=== PATIENT | female | born 2000 | race Two or more races ===

== ENCOUNTER 2023-05-29 16:18 | Emergency (ER) | payer MEDICAID, SELFPAY ==
[2023-05-29 16:23] VITALS: BP 108/64; PULSE 99; RESP 18; TEMP 36.8; O2SAT 98; BMI 24.2
--- NOTE | 2023-05-29 16:30 | ECG_ITS ---
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
--- NOTE | 2023-05-29 16:36 | ED.GENADUL1 ---
HPI - General Adult General Chief complaint: Chest Pain Stated complaint: RIB PAIN, POSS Time Seen by Provider: 05/29/23 16:20 Source: patient Mode of arrival: walk-in History of Present Illness HPI narrative: Patient is a 22-year-old female who presents to the emergency department for pain in the left inferior ribs laterally that has been present for the last day. She has no complaint of elia chest pain, shortness of breath, fevers, chills, cough, congestion. She states she came to the emergency department because she had similar pain when she was with her first child. She states she took 2 positive home tests at home. She was evaluated for the pain in the left rib cage with her previous and it was found to be benign. She states she came to the ER because the test were positive at home and she wants to find out why the ribs are hurting. She denies any injuries or traumas. She does not complain of abdominal pain until directly asked and then states that she developed pelvic pain today with no vaginal bleeding or fluid leakage. No urinary symptoms. No medications taken prior to arrival. Related Data Allergies Allergy/AdvReac Type Severity Reaction Status Date / Time No Known Drug Allergies Allergy Verified 05/29/23 16:27 Review of Systems ROS Constitutional Denies: fever or chills Ears, nose, mouth, and throat Denies: throat pain or nasal congestion Cardiovascular Reports: chest pain Respiratory Denies: shortness of breath, cough, wheezing, pain on inspiration, change in phlegm color or coughing up blood Gastrointestinal Reports: abdominal pain; Denies: nausea, vomiting or diarrhea Genitourinary Reports: pelvic pain; Denies: painful urination or urinary frequency Musculoskeletal Denies: back pain, neck pain, extremity pain or extremity swelling Integumentary/Breast Denies: rash Neurological Denies: headache Exam Narrative Exam Narrative: Gen.: Awake, alert, in no distress Head: Normocephalic, atraumatic ENT: Moist mucous membranes Respiratory: No respiratory distress, lungs clear bilaterally; Chest wall is nontender, no rashes or ecchymosis. No bony tenderness of the T-spine or L-spine Cardio: Regular rate and rhythm Gastrointestinal: Abdomen is soft, nondistended and nontender to palpation; No CVA tenderness Extremities: Moves extremities equally, no injuries noted Psych: Normal mood and affect Neuro: No focal neuro deficit Skin: Warm, dry, intact Constitutional Vital Signs, click to edit/add: Last Vital Signs Temp 98.2 F 05/29/23 16:23 Pulse 99 H 05/29/23 16:23 Resp 18 05/29/23 16:23 BP 108/64 05/29/23 16:23 Pulse Ox 98 05/29/23 16:23 O2 Del Method Room Air 05/29/23 16:29 Course Vital Signs Vital signs: Vital Signs Temperature 98.2 F 05/29/23 16:23 Pulse Rate 99 H 05/29/23 16:23 Respiratory Rate 18 05/29/23 16:23 Blood Pressure 108/64 05/29/23 16:23 Pulse Oximetry 98 05/29/23 16:23 Oxygen Delivery Method Room Air 05/29/23 16:23 Temperature 98.2 F 05/29/23 16:23 Pulse Rate 99 H 05/29/23 16:23 Respiratory Rate 18 05/29/23 16:23 Blood Pressure 108/64 05/29/23 16:23 Pulse Oximetry 98 05/29/23 16:23 Oxygen Delivery Method Room Air 05/29/23 16:29 Medical Decision Making MDM Narrative Medical decision making narrative: Patient with an unremarkable EKG and x-rays. Her lab studies show quantitative hCG level 1274.X-rays of the ribs and chest were obtained while shielding the patient's abdomen and with her consent. Ultrasound shows early intrauterine gestation with corpus luteum cyst and no other acute abnormalities. Abdomen is soft and benign. Follow-up with HEAD PIECE ASSEMBLER. Tylenol only for rib pain and return to the ER if symptoms change or worsen. Patient with no difficulty breathing, no severe pain in the ER, stable vital signs. Medical Records Medical records reviewed: Yes I reviewed the patient's medical records Lab Data Lab results reviewed: Yes I reviewed the patient's lab results Labs: Lab Results 05/29/23 05/29/23 Range/Units 16:41 16:44 WBC 6.3 (4.0-11.0) 10^3/uL RBC 3.60 L (4.20-5.40) 10^6/uL Hgb 11.3 L (12.0-16.0) g/dL Hct 34.0 L (36.0-48.0) % MCV 94.4 (81.0-99.0) fL MCH 31.4 (26.7-34.0) pg MCHC 33.2 (29.9-35.2) g/dL RDW 13.0 (11.0-15.0) % Plt Count 269 (150-450) 10^3/uL MPV 9.5 (9.5-13.5) fL Neut % (Auto) 57.1 (43.0-75.0) % Lymph % (Auto) 31.3 (20.5-60.0) % Centre % (Auto) 8.6 (1.7-12.0) % Eos % (Auto) 2.5 (0.9-7.0) % Baso % (Auto) 0.3 (0.2-2.0) % Neut # (Auto) 3.6 (1.4-6.5) 10^3/uL Lymph # (Auto) 2.0 (1.2-3.8) 10^3/uL Centre # (Auto) 0.5 (0.3-0.8) 10^3/uL Eos # (Auto) 0.2 (0.0-0.7) 10^3/uL Baso # (Auto) 0.0 (0.0-0.1) 10^3/uL Abs Immat Gran (auto) 0.01 (0.00-0.03) 10^3/uL Imm/Tot Granulo (auto) 0.2 (0.0-0.5) % HCG, Quant 1274 mIU/mL Urine Color Lt. yellow (YELLOW) Urine Clarity Clear (CLEAR) Urine pH 6.0 (5.0-9.0) Ur Specific [place] 1.020 (1.005-1.025) Urine Protein Negative (NEG/TRACE) mg/dL Urine Glucose (UA) Negative (NEGATIVE) mg/dL Urine Ketones Negative (NEGATIVE) mg/dL Urine Occult Blood Negative (NEGATIVE) Urine Nitrite Negative (NEGATIVE) Urine Bilirubin Negative (NEGATIVE) Urine Urobilinogen 0.2 (0.2-1.0) EU/dL Ur Leukocyte Esterase Negative (NEGATIVE) Blood Type B Positive Imaging Data Chest x-ray: Attestation: I have reviewed the pertinent imaging results. Radiologist's impression: ITS Impressions Transvaginal US 05/29/23 17:29 IMPRESSION: 1. Probable intrauterine , uncertain viability. Intrauterine gestational saclike structure is identified. Below the available reference data for gestational age assessment. Less than 5 weeks. 14 day follow-up sonography recommended. 2. Subcentimeter nabothian paracervical cyst 3. No perigestational hemorrhage 4. Mild maternal pelvic free fluid 5. Normal maternal right ovarian sonographic morphology 6. 2.7 cm maternal left ovarian corpus luteal cyst Electronically authenticated by: KALE NAJERA Date: 05/29/2023 18:45 Ribs X-Ray 05/29/23 17:53 IMPRESSION: No rib fracture. Electronically authenticated by: TL SUN Date: 05/29/2023 18:28 ECG Data Attestation: I personally reviewed and interpreted this ECG as follows: (Normal sinus rhythm at a rate of 88, no acute ST elevation or ectopy. EKG reviewed by attending physician.) Discharge Plan Discharge Chief Complaint: Chest Pain Clinical Impression: Intrauterine , Chest wall pain Patient Disposition: Home, Self-Care Time of Disposition Decision: 18:56 Condition: Good Instructions: (ED), Chest Wall Pain (ED) Stand Alone Forms: Portal Instructions Referrals: Physician,Non-Staff, MD [Primary Care Provider] - 1 week
[2023-05-29 16:51] LABS: Basophils Percent Auto 0.3 % (0.2-2.0); Eosinophils Absolute Auto 0.2 10^3/uL (0.0-0.7); Eosinophils Percent Auto 2.5 % (0.9-7.0); Hemoglobin 11.3 g/dL (12.0-16.0); Immature Granulocytes Abs Auto 0.01 10^3/uL (0.00-0.03); Immature Granulocytes Pct Auto 0.2 % (0.0-0.5); Lymphocytes Percent Auto 31.3 % (20.5-60.0); Mean Corpuscular HGB Conc 33.2 g/dL (29.9-35.2); Mean Corpuscular Hemoglobin 31.4 pg (26.7-34.0); Mean Corpuscular Volume 94.4 fL (81.0-99.0); Mean Platelet Volume 9.5 fL (9.5-13.5); Monocytes Absolute Auto 0.5 10^3/uL (0.3-0.8); Monocytes Percent Auto 8.6 % (1.7-12.0); Neutrophils Absolute Auto 3.6 10^3/uL (1.4-6.5); Neutrophils Percent Auto 57.1 % (43.0-75.0); Platelet Count 269 10^3/uL (150-450); White Blood Count 6.3 10^3/uL (4.0-11.0)
[2023-05-29 16:59] LABS: Bilirubin Urine NEGATIVE (NEGATIVE); Blood Urine NEGATIVE (NEGATIVE); Clarity Urine CLEAR (CLEAR); Color Urine LT. YELLOW (YELLOW); Glucose Urine UA NEGATIVE (NEGATIVE); Ketones Urine NEGATIVE (NEGATIVE); Leukocyte Esterase Urine NEGATIVE (NEGATIVE); Nitrite Urine NEGATIVE (NEGATIVE); Protein Urine NEGATIVE (NEG/TRACE); Urine Microscopic Indicated NO; Urobilinogen Urine 0.2 EU/dL (0.2-1.0)
[2023-05-29 17:26] LABS: HCG Quantitative 1274 mIU/mL
--- NOTE | 2023-05-29 17:29 | US_ITS ---
[place] [id number] Patient Name: VENECIA JARAMILLO MRN: [id number] date: 2000 Sex: F Assigned Patient Location: ER Current Patient Location: ER Accession/Order Number: [id number] Exam Date: 05/29/2023 17:30 Report Date: 05/29/2023 18:45 At the request of: KANG RODRIGEZ Procedure: US OB transvaginal PROCEDURE: US OB transvaginal, 05/29/2023 5:30 PM EST CLINICAL INDICATIONS: Encounter for first trimester , pelvic, left rib pain Uncertain LMP 3 para 1 AB 1 COMPARISON: None TECHNIQUE: Transvaginal first trimester obstetric sonogram, grayscale, color and spectral evaluation. FINDINGS: Uterus: Subcentimeter nabothian paracervical cyst noted. Intrauterine gestational saclike structure is identified superior right endometrial cavity. No sign of yolk sac, embryonic pole is evident. Cardiac activity is not seen. Significant perigestational hemorrhage is not seen. Mean gestational sac size: 0.28 cm. Below the available reference data for gestational age assessment. Mild maternal pelvic free fluid. Maternal right ovary: 2.5 x 3.4 x 2.0 cm, volume 9 mL. Normal sonographic morphology. Maternal left ovary: 3.1 x 4.7 x 2.9 cm. Volume 22 mL. 2.7 x 2.5 cm corpus luteal cyst is favored. Cervical length 3.9 cm by transvaginal assessment, closed US/US OB transvaginal IMPRESSION: 1. Probable intrauterine , uncertain viability. Intrauterine gestational saclike structure is identified. Below the available reference data for gestational age assessment. Less than 5 weeks. 14 day follow-up sonography recommended. 2. Subcentimeter nabothian paracervical cyst 3. No perigestational hemorrhage 4. Mild maternal pelvic free fluid 5. Normal maternal right ovarian sonographic morphology 6. 2.7 cm maternal left ovarian corpus luteal cyst Electronically authenticated by: KALE NAJERA Date: 05/29/2023 18:45
--- NOTE | 2023-05-29 17:53 | XR_ITS ---
The [address] [address] Patient Name: VENECIA JARAMILLO MRN: [id number] date: 2000 Sex: F Assigned Patient Location: ED.MAIN Current Patient Location: ER Accession/Order Number: [id number] Exam Date: 05/29/2023 17:45 Report Date: 05/29/2023 18:28 At the request of: KANG RODRIGEZ Procedure: XR ribs LT min 3V w CXR1V EXAM: XR ribs LT min 3V w CXR1V TECHNIQUE: PA view chest. PA view of the ribs above diaphragm, PA view ribs below diaphragm, oblique view ribs above diaphragm, oblique view ribs below diaphragm HISTORY: Chest wall pain. COMPARISON: None. FINDINGS: The heart and mediastinum are unremarkable. Lungs are clear of any acute infiltrate, effusion or mass. There is no pneumothorax. There is no evidence for rib fracture. No lytic or blastic lesion. XR/XR ribs LT min 3V w CXR1V IMPRESSION: No rib fracture. Electronically authenticated by: TL SUN Date: 05/29/2023 18:28
== END 2023-05-29 19:03 | disposition home or self-care (01) ==
PROVIDERS: Physician Assistant; Emergency Provider Emergency Medicine
DX: O26.891 Other specified pregnancy related conditions, first trimester (principal); R07.89 Other chest pain; Z3A.01 Less than 8 weeks gestation of pregnancy
CPT/HCPCS: 36415; 71101; 76817; 81003; 84702; 85025; 86900; 86901; 93005; 99285

== ENCOUNTER 2023-07-18 10:38 | Outpatient (OUT) | payer MEDICAID, SELFPAY ==
--- NOTE | 2023-07-18 10:40 | US_ITS ---
[address] [address] Patient Name: VENECIA JARAMILLO MRN: [id number] date: 2000 Sex: F Assigned Patient Location: [facility] Current Patient Location: [facility] Accession/Order Number: [id number] Exam Date: 07/18/2023 10:40 Report Date: 07/18/2023 12:37 At the request of: CHADWICK ESCALONA Procedure: US OB transvaginal EXAMINATION: US OB transvaginal HISTORY: MISSED MENSES COMPARISON: No relevant comparison available. FINDINGS: Transvaginal images Gestational sac: 4.9 cm, 10 weeks 4 days CRL: 5.74 cm, 12 weeks 2 days Heart rate: 162 beats minute Cervix: Closed, 5.3 cm The uterus is normal, anteverted, anteflexed The ovaries are normal Clinical age: 12 weeks 4 days Clinical OMEGA: 01/26/2024 Ultrasound age: 12 weeks 2 days Ultrasound OMEGA: 01/28/2024 US/US OB transvaginal IMPRESSION: Viable sherwood intrauterine gestation measuring 12 weeks 2 days Electronically authenticated by: DEQUAN THOMPSON Date: 07/18/2023 12:37
== END 2023-07-18 10:39 | disposition home or self-care (01) ==
LOC: NOMS 10:39
PROVIDERS: Visit Provider Obstetrics & Gynecology
DX: Z34.91 Encounter for supervision of normal pregnancy, unspecified, first trimester (principal); Z3A.12 12 weeks gestation of pregnancy; N92.6 Irregular menstruation, unspecified
CPT/HCPCS: 76817

== ENCOUNTER 2023-08-18 20:10 | Outpatient (REF) | payer MEDICAID, SELFPAY ==
--- OUTSIDE RECORDS SUMMARY | 2023-08-18 20:14 | XMS_ITS | CCD ---
Author Organization [facility] Encounters Encounter Date Encounter Type Care Provider Facility Start: 07-18-2023 End: 07-18-2023 ambulatory Not Available Payers Date Payer Category Payer Medicaid [id number] 2000 Unknown [id number] [id number] Summary Purpose Family History No Family History Records Found Advance Directives No Advanced Directives Records Found Additional Source Comments INFORMATION SOURCE (unrecogn ized section and content) DATE CREATED AUTHOR 07/20/2023 [facility] EPIC FOR RECORDS PERTAINING TO PATIENTS WHO ARE OR HAVE BEEN ENROLLED IN A CHEMICAL DEPENDENCY/SUBSTANCEABUSE PROGRAM, SOME INFORMATION MAY BE OMITTED. This clinical summary was aggregated from multiple sources. Caution should be exercised in using it in the provision of clinical care. This summary normalizes information from multiple sources, and as a consequence, information in this document may materially change the coding, format and clinical context of patient data. In addition, data may be omitted in some cases. CLINICAL DECISIONS SHOULD BE BASED ON THE PRIMARY CLINICAL RECORDS. [facility] [employer] [facility]. provides no warranty or guarantee of the accuracy or completeness of information in this document.
[2023-08-22 14:09] LABS: Age Gdln ACOG Testing Note (.); IGP, rfx Aptima HPV ASCU Note (.)
== END 2023-08-18 20:11 | disposition home or self-care (01) ==
LOC: LAB 20:10
PROVIDERS: Visit Provider Obstetrics & Gynecology
DX: Z01.419 Encounter for gynecological examination (general) (routine) without abnormal findings (principal)
CPT/HCPCS: G0145

== ENCOUNTER 2023-09-02 09:17 | Outpatient (OUT) | payer MEDICAID, SELFPAY ==
[2023-09-02 09:53] LABS: BOX Test Sent Out Y
[2023-09-02 10:16] LABS: Estimated Average Glucose 91 mg/dL; Glycohemoglobin A1C 4.8 % (4.5-6.2)
[2023-09-02 11:07] LABS: Basophils Percent Auto 0.3 % (0.2-2.0); Eosinophils Absolute Auto 0.1 10^3/uL (0.0-0.7); Hematocrit 35.9 % (36.0-48.0); Hemoglobin 11.8 g/dL (12.0-16.0); Immature Granulocytes Abs Auto 0.02 10^3/uL (0.00-0.03); Immature Granulocytes Pct Auto 0.3 % (0.0-0.5); Lymphocytes Absolute Auto 1.4 10^3/uL (1.2-3.8); Lymphocytes Percent Auto 22.8 % (20.5-60.0); Mean Corpuscular HGB Conc 32.9 g/dL (29.9-35.2); Mean Corpuscular Hemoglobin 31.6 pg (26.7-34.0); Mean Corpuscular Volume 96.2 fL (81.0-99.0); Monocytes Absolute Auto 0.4 10^3/uL (0.3-0.8); Monocytes Percent Auto 6.6 % (1.7-12.0); Neutrophils Absolute Auto 4.2 10^3/uL (1.4-6.5); Platelet Count 250 10^3/uL (150-450); Red Blood Count 3.73 10^6/uL (4.20-5.40); Red Cell Distribution Width 13.1 % (11.0-15.0); White Blood Count 6.1 10^3/uL (4.0-11.0)
[2023-09-03 06:12] LABS: HCV Ab Non Reactive (Non Reactive); HIV Ab/p24 Ag Screen Non Reactive (Non Reactive); Rubella Antibodies, IgG 3.82 index (Immune >0.99)
[2023-09-03 13:10] LABS: Rapid Plasma Reagin, Quant Non Reactive titer (NonRea<1:1)
[2023-09-06 04:07] LABS: AFP Value 62.9 ng/mL (.); Gest. Age on Collection Date 19.1 weeks (.); Insulin Dep Diabetes No (.); Maternal Age At EDD 22.2 yr (.); OSBR Risk 1 IN 7850 (.); Results Report (.)
[2023-09-08 10:11] LABS: HBsAg Screen Negative (Negative)
== END 2023-09-02 09:18 | disposition home or self-care (01) ==
LOC: LAB 09:18
PROVIDERS: Visit Provider Obstetrics & Gynecology
DX: Z34.80 Encounter for supervision of other normal pregnancy, unspecified trimester (principal)
CPT/HCPCS: 36415; 82105; 83036; 85025; 86592; 86762; 86803; 86850; 86900; 86901; 87086; 87340; 87389

== ENCOUNTER 2023-09-15 10:01 | Outpatient (OUT) | payer MEDICAID, SELFPAY ==
--- NOTE | 2023-09-15 10:04 | US_ITS ---
[address] [address] Patient Name: VENECIA JARAMILLO MRN: [id number] date: 2000 Sex: F Assigned Patient Location: [facility] Current Patient Location: [facility] Accession/Order Number: [id number] Exam Date: 09/15/2023 10:05 Report Date: 09/15/2023 12:06 At the request of: CHADWICK ESCALONA Procedure: US OB anatomy EXAMINATION: US OB anatomy, US OB cervical length HISTORY: ANATOMY COMPARISON: No relevant comparison available. TECHNIQUE: Transabdominal sonographic examination was performed for obstetrical and evaluation. FINDINGS: Number: 1 Heart Rate: 138.0 bpm H.B. /min Amniotic Fluid Volume: Subjectively normal Placental Location: ANTERIOR with lower margin 10.0 cm from os. Cervix Length: 4.3 cm, closed. ANATOMY: Normal Structures -cerebellum, choroid plexus, cisterna magna, lateral cerebral ventricles, orbits, midline falx, hard palate, four-chamber heart, RVOT, LVOT, stomach, kidneys, bladder, umbilical cord insertion into abdomen, three-vessel cord, cervical spine, thoracic spine, lumbar spine, sacral spine, right upper extremity, left upper extremity, right lower extremity, left lower extremity. SUBOPTIMALLY SEEN: None ABNORMALITIES: None BIOMETRY: BPD: 4.8 cm 20 weeks 4 days HC: 18.3 cm 20 weeks 5 days AC: 16.0 cm 21 weeks 1 days FL: 3.5 cm 21 weeks 1 days EFW:395.0 grams; 47% FL/AC: 21.9 FL/BPD: 73.0 HC/AC: 1.1 GESTATIONAL AGE: Age by EDC: 21 weeks 0 days OMEGA by EDC: 01/26/2024 Age by current US: 20 weeks 6 days OMEGA by current US: 01/29/2024 US/US OB anatomy IMPRESSION: 1. Single live intrauterine with growth detailed above. Electronically authenticated by: DIAZ GARCIA Date: 09/15/2023 12:06
--- NOTE | 2023-09-15 10:04 | US_ITS ---
[address] [address] Patient Name: VENECIA JARAMILLO MRN: [id number] date: 2000 Sex: F Assigned Patient Location: [facility] Current Patient Location: [facility] Accession/Order Number: [id number] Exam Date: 09/15/2023 10:04 Report Date: 09/15/2023 12:06 At the request of: CHADWICK ESCALONA Procedure: US OB cervical length EXAMINATION: US OB anatomy, US OB cervical length HISTORY: ANATOMY COMPARISON: No relevant comparison available. TECHNIQUE: Transabdominal sonographic examination was performed for obstetrical and evaluation. FINDINGS: Number: 1 Heart Rate: 138.0 bpm H.B. /min Amniotic Fluid Volume: Subjectively normal Placental Location: ANTERIOR with lower margin 10.0 cm from os. Cervix Length: 4.3 cm, closed. ANATOMY: Normal Structures -cerebellum, choroid plexus, cisterna magna, lateral cerebral ventricles, orbits, midline falx, hard palate, four-chamber heart, RVOT, LVOT, stomach, kidneys, bladder, umbilical cord insertion into abdomen, three-vessel cord, cervical spine, thoracic spine, lumbar spine, sacral spine, right upper extremity, left upper extremity, right lower extremity, left lower extremity. SUBOPTIMALLY SEEN: None ABNORMALITIES: None BIOMETRY: BPD: 4.8 cm 20 weeks 4 days HC: 18.3 cm 20 weeks 5 days AC: 16.0 cm 21 weeks 1 days FL: 3.5 cm 21 weeks 1 days EFW:395.0 grams; 47% FL/AC: 21.9 FL/BPD: 73.0 HC/AC: 1.1 GESTATIONAL AGE: Age by EDC: 21 weeks 0 days OMEGA by EDC: 01/26/2024 Age by current US: 20 weeks 6 days OMEGA by current US: 01/29/2024 US/US OB cervical length IMPRESSION: 1. Single live intrauterine with growth detailed above. Electronically authenticated by: DIAZ GARCIA Date: 09/15/2023 12:06
== END 2023-09-15 10:02 | disposition home or self-care (01) ==
LOC: NOMS 10:02
PROVIDERS: Visit Provider Obstetrics & Gynecology
DX: Z36.89 Encounter for other specified antenatal screening (principal); Z3A.20 20 weeks gestation of pregnancy
CPT/HCPCS: 76805; 76817

== ENCOUNTER 2023-11-05 10:28 | Outpatient (OUT) | payer MEDICAID, SELFPAY ==
--- NOTE | 2023-11-05 10:30 | US_ITS ---
[address] [address] Patient Name: VENECIA JARAMILLO MRN: [id number] date: 2000 Sex: F Assigned Patient Location: [facility] Current Patient Location: LAB Accession/Order Number: [id number] Exam Date: 11/05/2023 10:31 Report Date: 11/06/2023 15:56 At the request of: CHADWICK ESCALONA Procedure: US OB growth EXAMINATION: US OB growth HISTORY: LARGE FOR GESTATIONAL AGE COMPARISON: Ultrasound OB anatomy 09/15/2023 FINDINGS: Heart Rate: 144 bpm Amniotic Fluid Volume: 17.1 cm Number: 1 Position: Cephalic BIOMETRY: BPD: 6.84 cm cm; 27 weeks 4 days; 16.20 %% HC: 25.53 cm cm; 27 weeks 5 days; 8.90 %% AC: 23.33 cm cm; 27 weeks 5 days; 24.50 %% FL: 5.17 cm cm; 27 weeks 4 days; 17.70 %% EFW: 1089.38 g; 17.10 % FL/AC: 22.16 FL/BPD: 75.58 HC/AC: 1.09 GESTATIONAL AGE: Age by EDC: 20 weeks 2 days OMEGA by EDC: 2024-01-26 Age by US: 27 weeks 5 days OMEGA by US: 2024-01-30 US/US OB growth IMPRESSION: 1. Single live intrauterine with growth detailed above. Electronically authenticated by: DIAZ GARCIA Date: 11/06/2023 15:56
--- OUTSIDE RECORDS SUMMARY | 2023-11-05 10:36 | XMS_ITS | CCD ---
Author Organization [facility] Care Team Providers Care Loading Shovel Oiler Name Role Phone CHADWICK ESCALONA Attending Unavailable CYNDI SCHWAB Attending Unavailable IQRA, CHADWICK Attending Unavailable Encounters Encounter Date Encounter Type Care Provider Facility Start: 10-15-2023 End: 10-15-2023 ambulatory CHADWICK IQRA Not Available Start: 09-15-2023 End: 09-15-2023 ambulatory CYNDI SCHWAB Not Available Start: 08-18-2023 End: 08-18-2023 ambulatory CHADWICK IQRA Not Available Start: 07-18-2023 End: 07-18-2023 ambulatory CHADWICK IQRA Not Available Payers Date Payer Category Payer Medicaid [id number] 2000 Unknown [id number] 2.16.84 [id number] 2000 Unknown [id number] 2.16.84 [id number] 2000 Unknown [id number] 2.16.84 [id number] 2000 Unknown [id number] 2.16.84 [id number] Summary Purpose Family History No Family History Records Found Advance Directives No Advanced Directives Records Found Additional Source Comments INFORMATION SOURCE (unrecogn ized section and content) DATE CREATED AUTHOR 10/16/2023 [facility] EPIC FOR RECORDS PERTAINING TO PATIENTS [...] BE BASED ON THE PRIMARY CLINICAL RECORDS. [facility] [employer] [facility]. provides no warranty or guarantee of the accuracy or completeness of information in this document.
== END 2023-11-05 10:29 | disposition home or self-care (01) ==
LOC: NOMS 10:29
PROVIDERS: Visit Provider Obstetrics & Gynecology
DX: O36.63X0 Maternal care for excessive fetal growth, third trimester, not applicable or unspecified (principal); Z3A.27 27 weeks gestation of pregnancy
CPT/HCPCS: 76816

== ENCOUNTER 2023-11-06 11:53 | Outpatient (OUT) | payer MEDICAID, SELFPAY ==
--- OUTSIDE RECORDS SUMMARY | 2023-11-06 12:13 | XMS_ITS ---
Patient Summarization (C-CDA 2.1 CCD) Created on: November 06, 2023 JEF JARAMILLOA : 2000 Sex: Female Author Organization Sample organization Care Team Providers Care Gear Cutting Machine Set Up Operator Name Role Phone CHADWICK ESCALONA Attending Unavailable CYNDI SCHWAB Attending Unavailable IQRA, CHADWICK Attending Unavailable Encounters Encounter Date Encounter Type Care Provider Facility Start: 10-15-2023 End: 10-15-2023 ambulatory CHADWICK CLEMENTSO Not Available Start: 09-15-2023 End: 09-15-2023 ambulatory CYNDI SCHWAB Not Available Start: 08-18-2023 End: 08-18-2023 ambulatory CHADWICK IQRA Not Available Start: 07-18-2023 End: 07-18-2023 ambulatory CHADWICK IQRA Not Available Payers Date Payer Category Payer Medicaid [id number] 2000 Unknown [id number] 2.16.84 [id number] 2000 Unknown [id number] 2.16.84 [id number] 2000 Unknown [id number] 2.16.84 [id number] 2000 Unknown [id number] 2.16.84 [id number] Summary Purpose Family History No Family History Records Found Advance Directives No Advanced Directives Records Found Additional Source Comments INFORMATION SOURCE (unrecogn ized section and content) DATE CREATED AUTHOR 10/16/2023 [facility] EPIC FOR RECORDS PERTAINING TO [...] BE BASED ON THE PRIMARY CLINICAL RECORDS. [facility] [employer] [facility]. provides no warranty or guarantee of the accuracy or completeness of information in this document.
[2023-11-06 13:30] LABS: Glucose 1 Hour 113 mg/dL (<130)
[2023-11-06 13:44] LABS: Basophils Percent Auto 0.3 % (0.2-2.0); Eosinophils Percent Auto 0.3 % (0.9-7.0); Hematocrit 34.6 % (36.0-48.0); Hemoglobin 11.3 g/dL (12.0-16.0); Immature Granulocytes Abs Auto 0.06 10^3/uL (0.00-0.03); Immature Granulocytes Pct Auto 0.9 % (0.0-0.5); Lymphocytes Absolute Auto 1.3 10^3/uL (1.2-3.8); Lymphocytes Percent Auto 19.2 % (20.5-60.0); Mean Corpuscular HGB Conc 32.7 g/dL (29.9-35.2); Mean Corpuscular Hemoglobin 30.3 pg (26.7-34.0); Mean Corpuscular Volume 92.8 fL (81.0-99.0); Mean Platelet Volume 10.2 fL (9.5-13.5); Monocytes Absolute Auto 0.5 10^3/uL (0.3-0.8); Monocytes Percent Auto 7.5 % (1.7-12.0); Neutrophils Absolute Auto 4.9 10^3/uL (1.4-6.5); Neutrophils Percent Auto 71.8 % (43.0-75.0); Platelet Count 272 10^3/uL (150-450); Red Blood Count 3.73 10^6/uL (4.20-5.40); Red Cell Distribution Width 13.3 % (11.0-15.0); White Blood Count 6.8 10^3/uL (4.0-11.0)
== END 2023-11-06 11:54 | disposition home or self-care (01) ==
LOC: LAB 11:54
PROVIDERS: Visit Provider Obstetrics & Gynecology
DX: Z13.1 Encounter for screening for diabetes mellitus (principal)
CPT/HCPCS: 36415; 82950; 85025

== ENCOUNTER 2023-12-18 15:29 | Outpatient (OUT) | payer MEDICAID, SELFPAY ==
--- NOTE | 2023-12-18 15:32 | US_ITS ---
[address] [address] Patient Name: VENECIA JARAMILLO MRN: [id number] date: 2000 Sex: F Assigned Patient Location: US Current Patient Location: Accession/Order Number: [id number] Exam Date: 12/18/2023 15:33 Report Date: 12/19/2023 04:14 At the request of: CHADWICK ESCALONA Procedure: US OB growth EXAMINATION: US OB growth HISTORY: Excessive Growth Affecting Management Of COMPARISON: ULTRASOUND OB GROWTH 11/05/2023 FINDINGS: Heart Rate: 141.36 bpm Amniotic Fluid Volume: 19.8 cm; normal range. Number: 1 Position: CEPHALIC BIOMETRY: BPD: 8.15 cm; 32 weeks 5 days; 9.20 % HC: 30.81 cm; 34 weeks 3 days; 15.30 % AC: 29.89 cm; 33 weeks 6 days; 38 % FL: 6.40 cm; 33 weeks 0 days; 11.50 % EFW: 2227.89 g; 22 % FL/AC: 21.42 FL/BPD: 78.57 HC/AC: 1.03 GESTATIONAL AGE: Age by EDC: 34 weeks 3 days OMEGA by EDC: 2024-01-26 Age by US: 33 weeks 4 days OMEGA by US: 2024-02-01 US/US OB growth IMPRESSION: 1. Single live intrauterine with growth detailed above. Electronically authenticated by: DIAZ GARCIA Date: 12/19/2023 04:14
--- OUTSIDE RECORDS SUMMARY | 2023-12-18 15:51 | XMS_ITS | CCD ---
Author Organization [facility] Care Team Providers Care Tile Setter Name Role Phone IQRA, CHADWICK Attending Unavailable ZAHEER, CYNDI Attending Unavailable IQRA, CHADWICK Attending Unavailable IQRA, CHADWICK Attending Unavailable IQRA, CHADWICK Attending Unavailable ZAHEER, CYNDI Attending Unavailable Encounters Encounter Date Encounter Type Care Provider Facility Start: 12-03-2023 End: 12-03-2023 ambulatory CYNDI ZAHEER Not Available Start: 11-19-2023 End: 11-19-2023 ambulatory CHADWICK IQRA Not Available Start: 11-05-2023 End: 11-05-2023 ambulatory CHADWICK IQRA Not Available Start: 10-15-2023 End: 10-15-2023 ambulatory CHADWICK IQRA Not Available Start: 09-15-2023 End: 09-15-2023 ambulatory CYNDI ZAHEER Not Available Start: 08-18-2023 End: 08-18-2023 ambulatory CHADWICK IQRA Not Available Start: 07-18-2023 End: 07-18-2023 ambulatory CHADWICK IQRA Not Available Payers Date Payer Category Payer Medicaid [id number] 2000 Unknown [id number] 2.16.84 [id number] 2001 Unknown [id number] 2.16.84 [id number] 2001 Unknown [id number] 2.16.84 [id number] 2001 Unknown [id number] 2.16.84 [id number] 2001 Unknown [id number] 2.16.84 [id number] 2001 Unknown [id number] 2.16.84 [id number] 2001 Unknown [id number] 2.16.84 [id number] Summary Purpose Family History No Family History Records Found Advance Directives No Advanced Directives Records Found Additional Source Comments INFORMATION SOURCE (unrecogn ized section and content) DATE CREATED AUTHOR 12/07/2023 [facility] FOR RECORDS PERTAINING TO PATIENTS WHO ARE [...] BE BASED ON THE PRIMARY CLINICAL RECORDS. [facility] [employer] provides no warranty or guarantee of the accuracy or completeness of information in this document.
== END 2023-12-18 15:30 | disposition home or self-care (01) ==
LOC: US 15:29
PROVIDERS: Visit Provider Obstetrics & Gynecology
DX: O36.63X0 Maternal care for excessive fetal growth, third trimester, not applicable or unspecified (principal); Z3A.33 33 weeks gestation of pregnancy
CPT/HCPCS: 76816

== ENCOUNTER 2024-01-01 20:25 | Outpatient (REF) | payer MEDICAID, SELFPAY ==
--- OUTSIDE RECORDS SUMMARY | 2024-01-01 20:28 | XMS_ITS | CCD ---
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 Name Role Phone IQRA, CHADWICK Attending Unavailable ZAHEER, CYNDI Attending Unavailable IQRA, CHADWICK Attending Unavailable IQRA, CHADWICK Attending Unavailable IQRA, CHADWICK Attending Unavailable ZAHEER, CYNDI Attending Unavailable ZAHEER, CYNDI Attending Unavailable Encounters Encounter Date Encounter Type Care Provider Facility Start: 12-17-2023 End: 12-17-2023 ambulatory CYNDI ZAHEER Not Available Start: 12-03-2023 End: 12-03-2023 ambulatory CYNDI ZAHEER Not Available Start: 11-19-2023 End: 11-19-2023 ambulatory CHADIWCK IQRA Not Available Start: 11-05-2023 End: 11-05-2023 ambulatory CHADWICK IQRA Not Available Start: 10-15-2023 End: 10-15-2023 ambulatory CHADWICK IQRA Not Available Start: 09-15-2023 End: 09-15-2023 ambulatory CYNDI ZAHEER Not Available Start: 08-18-2023 End: 08-18-2023 ambulatory CHADWICK IQRA Not Available Start: 07-18-2023 End: 07-18-2023 ambulatory CHADWICK IQRA Not Available Payers Date Payer Category Payer Medicaid [id number] 2001 Unknown [id number] 2.16.84 [id number] 2001 Unknown [id number] 2.16.84 0.1.629233.3.579.2.1258 2001 Unknown [id number] 2.16.84 0.1.986197.3.579.2.9 2001 Unknown [id number] 2.16.84 0.1.294755.3.579.2.1258 2001 Unknown [id number] 2.16.84 0.1.457092.3.579.2.9 2001 Unknown [id number] 2.16.84 0.1.336649.3.579.2.9 2001 Unknown [id number] 2.16.84 0.1.241729.3.579.2.9 2001 Unknown [id number] 2.16.84 0.1.130423.3.579.2.1259 Summary Purpose Family History No Family History Records Found Advance Directives No Advanced Directives Records Found Additional Source Comments INFORMATION SOURCE (unrecogn ized section and content) DATE CREATED AUTHOR 12/19/2023 [facility] FOR RECORDS PERTAINING TO PATIENTS WHO ARE [...] BE BASED ON THE PRIMARY CLINICAL RECORDS. [employer] provides no warranty or guarantee of the accuracy or completeness of information in this document.
== END 2024-01-01 20:26 | disposition home or self-care (01) ==
LOC: LAB 20:25
PROVIDERS: Visit Provider Obstetrics & Gynecology
DX: Z34.93 Encounter for supervision of normal pregnancy, unspecified, third trimester (principal)
CPT/HCPCS: 36415

== ENCOUNTER 2024-01-20 04:59 | Inpatient (IN) | payer MEDICAID, SELFPAY ==
[2024-01-20] VITALS (27 sets, daily range): BP systolic 100–210; BP diastolic 53–130; PULSE 50–110; TEMP 36.1–36.7
--- OUTSIDE RECORDS SUMMARY | 2024-01-20 05:03 | XMS_ITS | CCD ---
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 Name Role Phone IQRA, CHADWICK Attending Unavailable ZAHEER, CYNDI Attending Unavailable IQRA, CHADWICK Attending Unavailable IQRA, CHADWICK Attending Unavailable IQRA, CHADWICK Attending Unavailable ZAHEER, CYNDI Attending Unavailable ZAHEER, CYNDI Attending Unavailable IQRA, CHADWICK Attending Unavailable IQRA, CHADWICK Attending Unavailable Encounters Encounter Date Encounter Type Care Provider Facility Start: 01-07-2024 End: 01-07-2024 ambulatory CHADWICK IQRA Not Available Start: 01-01-2024 End: 01-01-2024 ambulatory CHADWICK IQRA Not Available Start: 12-17-2023 End: 12-17-2023 ambulatory CYNDI ZAHEER [...] Available Payers Date Payer Category Payer Medicaid [id number] 2001 Unknown [id number] 2.16.84 0.1.200196.3.579.2.1259 2001 Unknown [id number] 2.16.84 0.1.384208.3.579.2.9 2001 Unknown [id number] 2.16.84 0.1.438838.3.579.2.1258 2001 Unknown [id number] 2.16.84 0.1.244765.3.579.2.1258 2001 Unknown [id number] 2.16.84 0.1.956265.3.579.2.1258 2001 Unknown [id number] 2.16.84 0.1.791964.3.579.2.1258 2001 Unknown [id number] 2.16.84 0.1.401394.3.579.2.1258 2001 Unknown [id number] 2.16.84 0.1.774149.3.579.2.1258 2001 Unknown [id number] 2.16.84 0.1.104217.3.579.2.1258 2001 Unknown [id number] 2.16.84 0.1.118698.3.579.2.1259 Summary Purpose Family History No Family History Records Found Advance Directives No Advanced Directives Records Found Additional Source Comments INFORMATION SOURCE (unrecogn ized section and content) DATE CREATED AUTHOR 01/09/2024 [facility] FOR RECORDS PERTAINING TO PATIENTS WHO ARE [...] BE BASED ON THE PRIMARY CLINICAL RECORDS. [facility] [employer] provides no warranty or guarantee of the accuracy or completeness of information in this document.
[2024-01-20 05:35] LABS: Hematocrit 36.9 % (36.0-48.0); Hemoglobin 12.1 g/dL (12.0-16.0); Mean Corpuscular HGB Conc 32.8 g/dL (29.9-35.2); Mean Corpuscular Hemoglobin 29.2 pg (26.7-34.0); Mean Corpuscular Volume 88.9 fL (81.0-99.0); Mean Platelet Volume 11.7 fL (9.5-13.5); Platelet Count 221 10^3/uL (150-450); Red Blood Count 4.15 10^6/uL (4.20-5.40); Red Cell Distribution Width 14.4 % (11.0-15.0); White Blood Count 7.2 10^3/uL (4.0-11.0)
[2024-01-20 05:45] LABS: Amphetamine Screen Urine NEGATIVE (NEGATIVE); Barbiturates Screen Urine NEGATIVE (NEGATIVE); Benzodiazepines Screen Urine NEGATIVE (NEGATIVE); Buprenorphine Screen Urine NEGATIVE (NEGATIVE); Cannabinoid Screen Urine POSITIVE (NEGATIVE); Cocaine Screen Urine NEGATIVE (NEGATIVE); Methadone Screen Urine NEGATIVE (NEGATIVE); Methamphetamines Screen Urine NEGATIVE (NEGATIVE); Opiate Screen Urine NEGATIVE (NEGATIVE); Oxycodone Screen Urine NEGATIVE (NEGATIVE); Phencyclidine Screen Urine NEGATIVE (NEGATIVE); Tricyclic Antidepressant Urine NEGATIVE (NEGATIVE)
[2024-01-20] MEDS: 0.9 % SODIUM CHLORIDE 1,000 ML 125 ML IV (05:57)
[2024-01-20] MEDS: OXYTOCIN/0.9 % SODIUM CHLORIDE 10 UNITS/500 ML PLAST..BAG 6 UNIT IV (05:58)
[2024-01-20] MEDS: 0.9 % SODIUM CHLORIDE 1,000 ML 1000 ML IV (10:12)
[2024-01-20] MEDS: ROPIVACAINE HCL/PF 400 MG/200 ML PREMIX EPIDURAL (10:13)
[2024-01-20] MEDS: OXYTOCIN/0.9 % SODIUM CHLORIDE 20 UNITS/1,000 ML PLAST..BAG 125 UNIT IV (11:35)
--- NOTE | 2024-01-20 11:36 | PM.OBPRCVD ---
Procedure Intrapartal events: None Induction method: per pitocin protocol Delivery augmentation: rupture of membranes and pitocin Delivery monitor: external FHT and external uterine Route of delivery: Episiotomy Description: none L&D Laceration Description: none Estimated blood loss (mL): 250 Anesthesia type: Epidural Disposition: floor Delivery date: 01/20/24 Gender: male presentation: vertex Placental delivery description: Spontaneous cord description: 3 Vessels and Nuchal Cord
[2024-01-20] MEDS: IBUPROFEN 600 MG TABLET PO (18:33)
[2024-01-21] MEDS: IBUPROFEN 600 MG TABLET PO ×3 (00:41→16:09)
[2024-01-21 05:50] LABS: Basophils Percent Auto 0.3 % (0.2-2.0); Eosinophils Absolute Auto 0.1 10^3/uL (0.0-0.7); Eosinophils Percent Auto 0.6 % (0.9-7.0); Hematocrit 35.1 % (36.0-48.0); Hemoglobin 11.4 g/dL (12.0-16.0); Immature Granulocytes Abs Auto 0.01 10^3/uL (0.00-0.03); Immature Granulocytes Pct Auto 0.1 % (0.0-0.5); Lymphocytes Absolute Auto 1.9 10^3/uL (1.2-3.8); Lymphocytes Percent Auto 20.7 % (20.5-60.0); Mean Corpuscular HGB Conc 32.5 g/dL (29.9-35.2); Mean Corpuscular Hemoglobin 28.6 pg (26.7-34.0); Mean Platelet Volume 10.8 fL (9.5-13.5); Monocytes Absolute Auto 0.7 10^3/uL (0.3-0.8); Monocytes Percent Auto 7.2 % (1.7-12.0); Neutrophils Absolute Auto 6.6 10^3/uL (1.4-6.5); Neutrophils Percent Auto 71.1 % (43.0-75.0); Platelet Count 193 10^3/uL (150-450); Red Blood Count 3.99 10^6/uL (4.20-5.40); Red Cell Distribution Width 14.2 % (11.0-15.0); White Blood Count 9.3 10^3/uL (4.0-11.0)
--- NOTE | 2024-01-21 07:54 | P.OBPN_ITS ---
OB - PN: Subj Subjective Patient comments: no complaints and pain well controlled [place] status: doing well Exam Constitutional Vital Signs, click to edit/add: Last Vital Signs Temp 97.8 F 01/20/24 23:50 Pulse 63 01/20/24 23:50 Resp 16 01/20/24 23:50 BP 106/56 01/20/24 23:50 O2 Del Method Room Air 01/20/24 23:50 Documenting provider has reviewed patient's vital signs: yes Common normals: no apparent distress Respiratory Common normals: clear to auscultation bilaterally Cardio Common normals: regular rate and regular rhythm GI Common normals: Normal to inspection, nondistended, normoactive bowel sounds present Extremity Common normals: no calf tenderness Results Labs Labs: Short CBC 01/21/24 Range/Units 05:41 WBC 9.3 (4.0-11.0) 10^3/uL Hgb 11.4 L (12.0-16.0) g/dL Hct 35.1 L (36.0-48.0) % Plt Count 193 (150-450) 10^3/uL OB - PN: A/P Plan - Vaginal Delivery day: 1 Plan: routine care, discharge home and follow up 6 weeks Time Spent with Patient Time: Total time spent is greater than 50% in coordination of care (as documented) at patient's floor/unit and/or counseling patient: Total time spent with greater than 50% in coordination of care (as documented) at patient's floor/unit and/or counseling patient: less than 15 minutes
[2024-01-21] MEDS: DOCUSATE SODIUM 100 MG CAPSULE PO (08:31)
[2024-01-21 10:17] VITALS: BP 111/77; PULSE 64; TEMP 36.7
--- NOTE | 2024-01-21 11:06 | SWNOTE1 ---
SW spoke to nursing prior to going in room, no concerns, pt and father of baby appropriate with baby. SW met with pt and father of baby to discuss positive Marijuana drug screen. They do live together and have a daughter together who is 1 1/2 years old. They do have everything they need at home for baby. Pt is signed up for [facility]. They also have good support as well. Pt is aware of sings of post as well. SW did ask pt about positive marijuana drug screen. She stated she smoke it due to her nausea and to help her eat. She attempted Zofran, but could not take it. She does not plan on continuing use as she is breast feeding. She does not have her medical marijunana card. Pt expressed this is the only thing that helped her eat. SW did advise pt and father of baby that SW is mandated market news reporter and has to make a referral to CPS. They voiced understanding and they had to when there daughter was born as well. Pt stated they came in to do a home assessment and the case was closed after that.
--- NOTE | 2024-01-21 11:22 | SWNOTE1 ---
HUGO called report in to [facility] CPS. HUGO filled out HIPAA form and sent to
== END 2024-01-21 16:20 | disposition home or self-care (01) | DRG 560 ==
PROVIDERS: Admitting Provider Obstetrics & Gynecology; Visit Provider Obstetrics & Gynecology
DX: O99.324 Drug use complicating childbirth (principal); O69.81X0 Labor and delivery complicated by cord around neck, without compression, not applicable or unspecified; Z3A.39 39 weeks gestation of pregnancy; F12.90 Cannabis use, unspecified, uncomplicated; Z37.0 Single live birth; O99.334 Smoking (tobacco) complicating childbirth; F17.290 Nicotine dependence, other tobacco product, uncomplicated
CPT/HCPCS: 36415; 59050; 59410; 80307; 80349; 85025; 85027; 86850; 86900; 86901; 96374; 96376; J2795

== ENCOUNTER 2024-09-14 19:28 | Outpatient (REF) | payer MEDICAID, SELFPAY ==
[2024-09-17 09:10] LABS: Age Gdln ACOG Testing Note (.); IGP, rfx Aptima HPV ASCU Note (.)
== END 2024-09-14 19:29 | disposition home or self-care (01) ==
LOC: LAB 19:28
PROVIDERS: Visit Provider Obstetrics & Gynecology
DX: Z01.419 Encounter for gynecological examination (general) (routine) without abnormal findings (principal)
CPT/HCPCS: 88175